=== PATIENT | male | born 2000 | race Caucasian/White ===

== ENCOUNTER 2025-08-14 13:28 | Emergency (ER) | payer BC, SELFPAY ==
[2025-08-14 13:34] VITALS: BP 140/69; PULSE 89; RESP 18; TEMP 36.4; O2SAT 98
[2025-08-14 14:01] LABS: Glucose Negative (Negative)
--- NOTE | 2025-08-14 14:14 | W.ED.GENAD ---
Discharge Plan Disposition Patient Disposition: Home Condition: Stable Discharge Details Clinical Impression: Depression Primary Care Provider: Esther Collazo ED Provider: Jasmine Berry Home Meds and New Rx's Prescriptions: No Action risperidone [Risperdal] 3 mg tablet 3 mg PO DAILY fluoxetine 40 mg capsule 40 mg PO DAILY trazodone 50 mg tablet 50 mg PO QHS PRN lorazepam [Ativan] 0.5 mg tablet 0.5 mg PO BID PRN propranolol 10 mg tablet 10 mg PO DAILY PRN Discharge Instructions Instructions: Depression, Adult ED Additional Instructions: You were seen in the emergency department today for evaluation of depression and passive suicidal thoughts without intent or plan. In our department you had a full examination and met with a member of our crisis team. You discussed a safety plan and this will be emailed to you. Please adhere to all aspects of the safety plan, including following up with your psychiatrist at your visit on Saturday. Please continue to take all medications as prescribed unless instructed to do so definitely by your psychiatrist. If at any point your suicidality worsens, you are unable to adhere to the safety plan as written, or you have any other concerns you can always return to the emergency department for reevaluation. Please follow-up with your primary care provider in the next few days to discuss this visit and any symptoms that change, worsen, or persist. Thank you for allowing us to be part of your care. Stand Alone Forms: Portal Information HPI General Mode of arrival: ambulatory. Date/Time Provider Initiated Documentation: 08/14/25 13:33. Limitations to Documentation: no limitations. Information obtained by: patient, family and old records reviewed. HPI Narrative: This is a 25-year-old male patient with a past medical history significant for anxiety and depression that has been quite severe since June, presenting for evaluation of ongoing depression symptoms and passive suicidal ideation. The patient reports that in June he was hospitalized at [facility], after having worsening depression, anhedonia, and anxiety and restlessness since his partner broke up with him over the summer. He states that he stayed there for a week and a half, and did not have the best experience at that time. He was started on a number of medications which he has been taking, he states that they do not seem to be helping. He often feels so numb that he cannot accomplish tasks, and has been unable to perform his job due to his symptoms. He has difficulty sleeping and states that he wishes he could just go to sleep and not wake up. He endorses these passive suicidal feelings have been worsening over the last few weeks, he has not had any specific plan or intent and has never made an attempt to harm himself or kill himself in the past. He does not use nicotine, alcohol, or tobacco actively, denies recent misuse or missed doses of his prescribed medications. The patient is not sure if he would be interested in inpatient treatment again but came today because he felt like things have just gotten worse and he does not know what else to do. He is accompanied by his parent, with whom he lives. Related Data Home Medications ?Medication ?Instructions ?Recorded ?Confirmed fluoxetine 40 mg capsule 40 mg PO DAILY 08/14/25 08/14/25 lorazepam 0.5 mg tablet (Ativan) 0.5 mg PO BID PRN 08/14/25 08/14/25 propranolol 10 mg tablet 10 mg PO DAILY PRN 08/14/25 08/14/25 risperidone 3 mg tablet (Risperdal) 3 mg PO DAILY 08/14/25 08/14/25 trazodone 50 mg tablet 50 mg PO QHS PRN 08/14/25 08/14/25 Allergies Allergy/AdvReac Type Severity Reaction Status Date / Time Penicillins Allergy Mild Hives Verified 08/14/25 13:51 General Stated Complaint: PsychEval WIL: 2 Exam Narrative Exam Narrative: Gen: Awake and alert, in no apparent distress HEENT: Non-icteric sclera Neck: Supple Lungs: No apparent respiratory distress, normal respiratory effort. CV: Appears well perfused Abdomen: Non-distended MSK: Moves 4 extremities without apparent limitation in ROM Skin: Visualized skin without rashes, cyanosis. Neuro: Normal Gait, no obvious focal deficits or facial asymmetry. Speaks in full, clear sentences. Psych: Flat affect, but demonstrates a linear thought process, endorsing depression. Endorses occasional anxiety and panic, endorses passive suicidal ideation without plan or intent. Course Vital Signs Vital signs: Vital Signs Temperature 36.4 C 08/14/25 13:34 Pulse 89 08/14/25 13:34 Respiratory Rate 18 08/14/25 13:34 Blood Pressure 140/69 08/14/25 13:34 Pulse Oximetry 98 12/13/25 13:34 Temperature 36.4 C 08/14/25 13:34 Pulse 89 08/14/25 13:34 Respiratory Rate 18 08/14/25 13:34 Blood Pressure 140/69 08/14/25 13:34 Pulse Oximetry 98 08/14/25 13:34 Pain Level 0 08/14/25 13:34 Lab/Test Results Lab/Test Results: Laboratory Tests Range/Units 08/14/25 13:50 Urine Color (Yellow) Yellow Urine Clarity (Clear) Sl Cloudy Urine pH (5-8) 7.0 Ur Specific [place] (1.005-1.025) 1.015 Urine Protein (Neg-Trace) mg/dL Negative Urine Ketones (Negative) mg/dL Negative Urine Blood (Negative) Negative Urine Nitrite (Negative) Negative Urine Bilirubin (Negative) Negative Urine Urobilinogen (Up to 0.2) mg/dL 0.2 Ur Leukocyte Esterase (Negative) Negative Urine Glucose (Negative) mg/dL Negative Medical Decision Making This is a 25-year-old male patient presenting for evaluation of depression. Differential includes but is not limited to primary psychiatric disturbance, the patient does not have any medical comorbidities or acute medical complaints at this time to suggest infection, metabolic or electrolyte derangement, dehydration, liver injury. No evidence on physical examination for acute intoxication, nor withdrawal syndrome. We obtained urinalysis and UDS, the patient does meets SMART medical clearance criteria and does not require labs, we will reach out to [facility] to have them perform an evaluation of this patient. - Urinalysis noninfectious, UDS negative, [facility] evaluated the patient and at this time, he is appropriate for an outpatient safety plan. He has an appointment with his psychiatrist scheduled for Saturday and will call them to discuss medication changes. The patient remains without active suicidality and I do not feel that he requires an involuntary hold for inpatient placement at this time. At this time, the patient has had a full medical evaluation and is safe for discharge to home. They are hemodynamically stable, ambulatory, and tolerating PO. They are understanding of the follow-up plan and return precautions. They left our facility without incident. Jasmine Berry MD [facility] All Active Problems (Updated 08/14/25 @ 17:25 by Jasmine Berry MD) Depression (Chronic) Social History Smoking/Tobacco Use Status: Never Smoking risk assessment performed?: Yes Alcohol Intake: never Drug use: Never Substance use type: does not use Do you feel safe at home: Yes Do you feel safe in your relationship?: Yes
[2025-08-14 15:21] LABS: Cannabinoids THC Negative (Negative)
--- NOTE | 2025-08-14 19:13 | N[facility]H.SBSAF_ITS ---
Date of service: 08/14/25 Time of Service: 17:00 Ramos-Brown Safety Plan Step 1: Warning signs 1.: Feeling shifty, can't sit still, feeling like I have to move (involuntary) 2.: can't talk, feeling extreme restlessness 3.: loss of appetite Step 2: Internal Coping Strategies Things I can do to take my mind off my problems without contacting another person: 1.: Play games with mom, e.g. skipbo, card games, puzzles. 2.: Rest, try to relax, listen to music, play piano. Step 3: People and Social Settings People and social settings that provide distraction: 1. Name: Family (Mom, Dad, Sister, Brother, extended) 2. Name: Yady, friend Step 4: Assistance People whom I can ask for help during a crisis: 1. Name: Essie (Mom) 2. Name: Yady (friend) 3. Name: Sister Step 5: Professionals/Agencies Professionals or agencies I can contact during a crisis: 1. Clinician/Agency Name: [facility] 2. Clinician/Agency Name: [facility] 2. 2. Emergency Contact: [address] [place] [address] - 24 hour Walk-In 3. Local Emergency Department: [address] [place] [address] 4. [facility] ([facility]) Mobile Crisis Suicide Prevention Lifeline Phone: [phone] Step 6: Making the Environment Safer Making the environment safer (plan for lethal means safety): 1.: Mom assists with medications. 2.: Carlos is not impulsive or currently at risk of harm to self or others. Copy to Patient/Family Provided a copy of the Ramos Brown Safety Plan to Patient/Family: Yes Ramos Nielsen Copyright Ramos-Brown Safety Planning Intervention The Ramos-Brown Safety Plan is copyrighted by Lesly Beasley, PhD & Matias Nielsen, PhD (2020). Individual use of the Ramos-Brown Safety Plan form is permitted. Written permission from the authors is required for any changes to this form or use of this form in the electronic medical record. Additional resources are available from www.suicidesafetyplan.com.
--- NOTE | 2025-08-15 00:04 | PDOC.MHCN ---
Date of service: 08/14/25 Time of Service: 17:00 PHQ-9 Over the last 2 weeks, how often have you been bothered by any of the following problems? 1. Little interest or pleasure in doing things: nearly every day 2. Feeling down, depressed, or hopeless: nearly every day 3. Trouble falling or staying asleep, or sleeping too much: nearly every day 4. Feeling tired or having little energy: nearly every day 5. Poor appetite or overeating: nearly every day 6. Feeling bad about yourself - or that you are a failure or have let yourself and your family down: nearly every day 7. Trouble concentrating on things, such as reading the newspaper or watching television: nearly every day 8. Moving or speaking so slowly that other people could have noticed? - Or the opposite - being so fidgety or restless that you have been moving around a lot more than usual: nearly every day 9. Thoughts that you would be better off or of hurting yourself in some way: nearly every day Total score: 27 If you checked off any problems, how difficult have these problems made it for you to do your work, take care of things at home, or get along with other people?: extremely difficult PHQ-9 Results: Positive Source: Developed by Drs. Dru Rosario, Huma Saba, Bennett Pinto and colleagues, with an educational maite from [employer]. Suicide Severity Rate CSSRS Have you wished you were or wished you could go to sleep and not wake up?: Yes Have you actually had any thoughts of killing yourself?: No CSSRS2 Have you been thinking about how you might do this?: No Have you had these thoughts and had some intention of acting on them?: No Have you started to work out or worked out the details of how to kill yourself? Do you intend to carry out this plan?: No CSSRS3 Have you ever done anything, started to do anything or prepared to do anything to end your life?: No CSSRS4 Was this within the past three months?: No Screening Score Total Score: 2 Screening: Positive Mental Health Emergency Note Release [facility] release signed:: No Reason for Visit Severe anxiety, Passive Suicidal Ideation In the last 2 weeks has the pt presented for ES prior to today?: Unknown Non Suicidal Self Injury Current: No History: No Safety Risk/Harm to Self or Others Current Ideation to Harm Self or Others: No CALM/Risk Level Does risk to harm exist?: No Risk: Low Risk Duty to warn indicated: No Asssessment/Mental Status Appearance: Well groomed Attitude: Cooperative and Friendly Behavior: Poor impulse control and Repetitive movements Speech: Normal Affect: Incongurent with mood Mood: Stressed and Anxious Thought process: Circumstational Hallucinations: No evidence Delusions: No evidence Attention: Unremarkable Perception: Not impaired Orientation: Fully orientated Memory: Intact Insight: Excellent Judgement: Excellent Neurovegetative Symptoms Sleep: Decrease Appetitie: Decrease Interests: Decrease Energy: Decrease Libido: No change Substance Use: Do you use nicotine?: No Have you used substances in the last 7 days?: No Additional Issues: Assaultive/Threatening Behavior: No Medical Concerns: No Client engaged in active self harm w/weapon: No Threatening to run away: No Child reported abuse/neglect: No Voluntarily presenting for services: Yes Domestic violence is a concern: No Extreme Psychosis or extreme behavior is present: No Impression Client is a 25-year-old male, single, who is currently employed but facing job insecurity. He resides with his family in [place], [place] and was accompanied by his mother, Essie, for the assessment. Client is new to [facility] and this clinician, having agreed to an in-person assessment at [facility] after presenting with severe anxiety and passive suicidal ideation. He exhibited a well-groomed appearance and displayed cooperative and friendly demeanor, maintaining good eye contact throughout the assessment. The clinician noted repetitive movements, poor impulse control, and an inability to sit still, characterized by fidgeting, rising, and sitting. Client reported feelings of restlessness, indicating he cannot calm down and struggles with focus while experiencing passive suicidal thoughts without any intent or plan. He demonstrated a calm affect that appeared incongruent with his stressed and anxious mood and exhibited a circumstantial thought process marked by worry. Since relocating to [place] from [place] in June, the client reported that severe anxiety began to impact his life significantly. He described instances of anxiety saying he gets so anxious that chest gets tight. The assessment revealed no evidence of hallucinations or delusions; however, the client reported symptoms consistent with PTSD that contribute to a restless mind and mental imagery. Client is oriented with intact memory, excellent insight and judgment, and linear thought processes. He faces challenges including decreased sleep and appetite, while expressing tiredness, hopelessness, and disinterest in life. Client voiced fears about going to sleep, stating he experiences flashes of graphic things he has seen before. He denies any suicidal ideation, homicidal ideation, or non-suicidal self-injury. Additionally, the client recognized deterrents and has a strong support system. After a thorough discussion, the client decided that the best course of action is to return home with a safety plan, ensuring he maintains access to his psychiatrist in two days, and declined inpatient mental health treatment. A safety plan was established, including a follow-up phone call scheduled for the afternoon of 08/16, and community resources were provided. Clinician recommended that the client call his psychiatrist immediately to discuss his current condition and request an interim adjustment before the upcoming appointment. Clinician will continue to monitor and assess the client?s mental health status, particularly concerning his anxiety and ongoing symptoms of PTSD. The emphasis will be on ensuring the client adheres to the safety plan while supporting him in maintaining communication with his psychiatrist. Clinician aims to coordinate further resources as needed, advocating for the client's well-being during this challenging period.? Resources Reosurces reviewed and given:: [id number], NK and Other Plan/Disposition Recommended Disposition: Community resources. Plan: Client discharged home with Safety Plan and scheduled follow-up. Reports/communication Outcome discussed with: ED/Personnel
== END 2025-08-14 17:32 | disposition home or self-care (01) ==
PROVIDERS: Emergency Provider Emergency Medicine; PCP Nurse Practitioner Family
DX: F32.A Depression, unspecified (principal); F41.9 Anxiety disorder, unspecified; R45.851 Suicidal ideations
CPT/HCPCS: 99284; 99283; 00123; 80307; 96127; 81003